=== PATIENT | female | born 1995 | race Caucasian/White ===

== ENCOUNTER 2021-05-12 06:28 | Inpatient (IN) ==
[2021-05-12] MEDS ORDERED: PITOCIN ONE (06:41)
[2021-05-12] MEDS ORDERED: BETADINE SOLN ONE (06:41)
[2021-05-12] MEDS ORDERED: D5 1/2 NS 1,000 ML 1,000 ML IV ONE (06:41)
[2021-05-12] MEDS ORDERED: D5 1/2 NS 1,000 mL + PITOCIN 20 UNITS/L IV 20 UNITS/1,000 ML BAG IV ONE (06:42)
[2021-05-12] MEDS ORDERED: D5 LR + PITOCIN 10 UNITS/L 10 UNITS/1,000 ML BAG IV ONE (06:42)
--- NOTE | 2021-05-12 07:06 | DR.OB ---
OB Quick Note - Assessment/Plan Assessment/Plan: L&D 05/12/21 at 7:00am S-No complaint. O-Afebrile,VSS AAY=547 with good LTV, +accel, no decel. CTX=mild uterine irritability CVX=3-4cm/50%/-1/VTX AROM with clear fluid. IUPC and FSE placed. A-IUP at 38 2/7 weeks for induction A1DM anxiety P-Begin pitocin induction Anticipate
[2021-05-12] MEDS ORDERED: NUBAIN INJ 200 MG VIAL MULTIDOSE IVP PRN (07:11)
[2021-05-12] MEDS ORDERED: REGLAN INJ 10 MG VIAL IVP PRN (07:11)
[2021-05-12] MEDS ORDERED: PITOCIN IVP ONE (07:11)
[2021-05-12] MEDS ORDERED: MORPHINE SULFATE INJ 2 MG INJ IVP PRN (07:11)
[2021-05-12] MEDS ORDERED: D5 1/2 NS 1,000 ML 1,000 ML IV SCH (07:11)
[2021-05-12] MEDS ORDERED: D5 LR + PITOCIN 10 UNITS/L 10 UNITS/1,000 ML BAG IV PRN (07:11)
[2021-05-12] MEDS ORDERED: PHENERGAN INJ 25 MG IM PRN ×2 (07:11→10:46)
[2021-05-12 07:55] LABS: BILIRUBIN,URINE NEGATIVE (NEGATIVE); BLOOD/HEMOGLOBIN,URINE NEGATIVE (NEGATIVE); GLUCOSE, URINE NEGATIVE (NEGATIVE); KETONES,URINE NEGATIVE (NEGATIVE); LEUKOCYTE ESTERASE ,URINE 1+ (NEGATIVE); NITRITES,URINE NEGATIVE (NEGATIVE); PROTEIN,URINE NEGATIVE (NEGATIVE); UROBILINOGEN,URINE NORMAL (NORMAL)
[2021-05-12] MEDS ORDERED: LR 1,000 ML IV 1,000 ML IV ONE (07:59)
[2021-05-12] MEDS ORDERED: FENTANYL VIAL INJ 100 mcg ONE ×2 (07:59→08:00)
[2021-05-12] MEDS ORDERED: NAROPIN EPIDURAL 0.2% 100 ML ONE (08:00)
[2021-05-12 08:04] LABS: APPEARANCE,URINE CLEAR (CLEAR); BACTERIA,URINE TRACE /HPF (NEGATIVE); COLOR,URINE YELLOW (YELLOW); RBC,URINE 0-2 /HPF (0-3); SQUAMOUS EPITHELIAL CELL,UR FEW /HPF (NEGATIVE)
[2021-05-12] MEDS ORDERED: MOTRIN TAB 800 MG PO PRN (10:46)
[2021-05-12] MEDS: D5 1/2 NS 1,000 ML 1,000 ML with PITOCIN 20 UNITS IV SCH ×4 (11:30→20:49)
--- NOTE | 2021-05-12 11:45 | DR.OB ---
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 Head delivered over intact perineum. Nuchal cord x 1 reduced. Nose and mouth bulb suctioned. Body delivered over intact perineum. Cord clamped x 2 and cut. Infant handed to attendant. Cord sent for gases. Placenta delivered spontaneously / intact / 3 vessel cord. No CVX / vaginal / perineal tears. Viable male delivered by , wt=6'14" and 8/9, stable to NBN. Mother stable to RR. GXO=006yc.
[2021-05-12] MEDS ORDERED: MILK OF MAGNESIA PO PRN (12:28)
[2021-05-12] MEDS ORDERED: ADACEL or BOOSTRIX TDaP VACCINE IM ONE (12:28)
[2021-05-12] MEDS ORDERED: AMBIEN PO PRN (12:28)
[2021-05-12] MEDS ORDERED: DERMOPLAST PAIN RELIEF SPRAY TOP PRN (12:28)
[2021-05-13] MEDS: D5 1/2 NS 1,000 ML 1,000 ML with PITOCIN 20 UNITS IV SCH ×4 (05:12→11:28)
[2021-05-13 05:48] LABS: HEMATOCRIT 31.4 % (36.0-47.0); HEMOGLOBIN 10.2 g/dL (12.0-16.0)
[2021-05-13] MEDS ORDERED: DEPO-PROVERA CONTRACEPTIVE INJ IM ONE (07:27)
[2021-05-13] MEDS ORDERED: BETADINE SOLN ONE (08:05)
[2021-05-13] MEDS ORDERED: LEXAPRO ONE (08:34)
[2021-05-13] MEDS ORDERED: LEXAPRO PO SCH (09:00)
[2021-05-13] MEDS ORDERED: CELEXA PO SCH (09:00)
[2021-05-13] MEDS ORDERED: PRENATAL PLUS PO SCH (09:00)
[2021-05-13 12:28] VITALS: BP 123/78
== END 2021-05-13 15:35 | disposition home or self-care (01) | DRG 807 ==
LOC: LD 06:28 → MED/SURG 12:25
PROVIDERS: ADMIT Specialist; ATTEND Specialist
DX: Z01.812 Encounter for preprocedural laboratory examination; Z37.0 Single live birth; Z01.818 Encounter for other preprocedural examination; O13.3 Gestational [pregnancy-induced] hypertension without significant proteinuria, third trimester; Z3A.38 38 weeks gestation of pregnancy; Z20.822 Contact with and (suspected) exposure to COVID-19; O99.343 Other mental disorders complicating pregnancy, third trimester

== ENCOUNTER 2024-01-14 17:17 | Observation (INO) ==
[2024-01-14] MEDS ORDERED: ZOFRAN INJ 4 MG VIAL ONE (17:38)
--- NOTE | 2024-01-14 17:38 | DR.EXTPAIN ---
HPI Time seen Time Seen by Provider: 01/14/24 17:38 PCP Primary Care Physician: NFP Complaint/Symptoms Chief Complaint:: c/o vomiting, dizzy, back & stomach pain since 3am. denies fever, cough, chills Self Treatment fo Chief Complaint: zofran and phenergan PO COVID-19 Coronavirus risk:travel/contact w/high risk person: No Has patient experienced Coronavirus symptoms: No Source History Provided: Patient Mode of arrival Mode of Arrival: Ambulatory Timing Onset of Chief Complaint: 01/14/24 PMH PMH Past Medical History: Yes Past Medical History: Asthma Past Medical History Comment: endometriosis Past Surgical History: Yes Surgical History: [employer] Surgery Past Surgical History Comment: tubal ligation Family History History of Family Medical Conditions: Yes Family Medical History: Diabetes Mellitus, Cancer, [place], Coronary Artery Disease and Hypertension Social History Type of Tobacco Use: Vape Alcohol Use: None Do you use any recreational Drugs:: No Lives With: Alone Lives Where: Home Travel Risk Coronavirus risk:travel/contact w/high risk person: No Has patient experienced Coronavirus symptoms: No Infectious screening Have you traveled outside the country in the last 6 months?: No Isolation: Standard PE Vital Signs Vitals: Vital Signs Temperature 97.4 F Temperature 97.5 F Pulse Rate [Left Brachial] 74 Pulse Rate 50 Respiratory Rate 18 Respiratory Rate 24 Blood Pressure [Left Arm] 126/74 Blood Pressure 135/74 O2 Sat by Pulse Oximetry 97 O2 Sat by Pulse Oximetry 100 ROR Labs Reviewed 01/14/24 17:36 01/14/24 17:36 Laboratory: WBC 11.4 X10^3/uL (3.6-10.0) H 01/14/24 17:36 RBC 4.49 X10^6/uL (3.5-5.4) 01/14/24 17:36 Hgb 12.5 g/dL (12.0-16.0) 01/14/24 17:36 Hct 38.1 % (36.0-47.0) 01/14/24 17:36 MCV 84.8 fL (80.0-100.0) 01/14/24 17:36 MCH 27.9 pg (27.0-34.0) 01/14/24 17:36 MCHC 32.8 g/dL (33.0-35.0) L 01/14/24 17:36 RDW 16.0 % (11.6-16.5) 01/14/24 17:36 Plt Count 268 X10^3/uL (150.0-450.0) 01/14/24 17:36 MPV 8.5 fL (7.4-11.0) 01/14/24 17:36 Neut % (Auto) 68.2 % (42.0-75.0) 01/14/24 17:36 Lymph % (Auto) 25.8 % (21.0-51.0) 01/14/24 17:36 Benson % (Auto) 5.3 % (0.0-13.0) 01/14/24 17:36 Eos % (Auto) 0.2 % (0.9-2.9) L 01/14/24 17:36 Baso % (Auto) 0.5 % (0.2-1.0) 01/14/24 17:36 Neut # (Auto) 7.8 x10^3/uL (2.2-4.8) H 01/14/24 17:36 Lymph # (Auto) 2.9 X10^3/uL (1.3-2.9) 01/14/24 17:36 Benson # (Auto) 0.6 x10^3/uL (0.3-0.8) 01/14/24 17:36 Eos # (Auto) 0.0 x10^3/uL (0.0-0.2) 01/14/24 17:36 Baso # (Auto) 0.1 X10^3/uL (0.0-0.1) 01/14/24 17:36 Absolute Nucleated RBC 0.2 /100WBC 01/14/24 17:36 Sodium 135 mmol/L (136-145) L 01/14/24 17:36 Corrected Sodium TNP 01/14/24 17:36 Potassium 3.8 mmol/L (3.5-5.1) 01/14/24 17:36 Chloride 100 mmol/L (98-107) 01/14/24 17:36 Carbon Dioxide 29.6 mmol/L (21-32) 01/14/24 17:36 BUN 6 mg/dL (7-18) L 01/14/24 17:36 Creatinine 0.95 mg/dL (0.55-1.02) 01/14/24 17:36 Est GFR (MDRD) Af Amer > 60 (>60) 01/14/24 17:36 Est GFR (MDRD) Non-Af > 60 (>60) 01/14/24 17:36 Glucose 102 mg/dL (65-99) H 01/14/24 17:36 Calcium 8.5 mg/dL (8.5-10.1) 01/14/24 17:36 Corrected Calcium TNP 01/14/24 17:36 Total Bilirubin 0.30 mg/dL (0.2-1.0) 01/14/24 17:36 AST 11 Units/L (15-37) L 01/14/24 17:36 ALT 18 Units/L (12-78) 01/14/24 17:36 Alkaline Phosphatase 89 Units/L (46-116) 01/14/24 17:36 Total Protein 7.7 g/dL (6.4-8.2) 01/14/24 17:36 Albumin 3.8 g/dL (3.4-5.0) 01/14/24 17:36 Globulin 3.9 g/dL (2.5-4.5) 01/14/24 17:36 Albumin/Globulin Ratio 1.0 Ratio (1.1-2.1) L 01/14/24 17:36 Amylase 44 Units/L (25-115) 01/14/24 17:36 Lipase 24 Units/L (16-77) 01/14/24 17:36 Specimen Type Clean catch urine 01/14/24 18:35 Urine Color Yellow (YELLOW) 01/14/24 18:35 Urine Appearance Clear (CLEAR) 01/14/24 18:35 Urine pH 6.0 (5.0 - 8.0) 01/14/24 18:35 Ur Specific [place] 1.020 (1.000-1.030) 01/14/24 18:35 Urine Protein Negative (NEGATIVE) 01/14/24 18:35 Urine Glucose (UA) Negative (NEGATIVE) 01/14/24 18:35 Urine Ketones Negative (NEGATIVE) 01/14/24 18:35 Urine Blood Negative (NEGATIVE) 01/14/24 18:35 Urine Nitrite Negative (NEGATIVE) 01/14/24 18:35 Urine Bilirubin Negative (NEGATIVE) 01/14/24 18:35 Urine Urobilinogen Normal (NORMAL) 01/14/24 18:35 Ur Leukocyte Esterase Negative (NEGATIVE) 01/14/24 18:35 SARS-CoV-2 (PCR) Negative (NEGATIVE) 01/14/24 17:32 Influenza Type A (PCR) Negative (NEGATIVE) 01/14/24 17:32 Influenza Type B (PCR) Negative (NEGATIVE) 01/14/24 17:32 RSV (PCR) Negative (NEGATIVE) 01/14/24 17:32 Opioid Opioid Risk Tool Age (Edgard box if 16-45): Yes History of Preadolescent Sexual Abuse: No Total: 1 Total Score Risk Category: Low Risk Copyright: Pierre [employer]YLES predicting aberrant behaviors Discharge Plan Discharge Plan Patient Disposition: 01 HOME, SELF-CARE Condition: Stable Prescriptions: No Action [facility] Concerns: Post Hospitalization: new medications and changes needed to prevent readmission or further decline. Pt educated and given instructions on all concerns. Plan of Treatment: Continue with present treatment and follow up plan. Pt is to keep follow up appointment as instructed and take medications as ordered. Orders to Discharge Patient Discharge Orders: Transfer (Routine); Ordered 01/14/24 Ordered By: MARYAN ELAINE Follow ups/Referrals Follow ups/Referrals: NFD,None [Primary Care Provider] - 3 days Instructions Stand Alone Forms: Post Hospital Follow Up Care
[2024-01-14] MEDS: ZOFRAN INJ 4 MG VIAL IVP ONE (17:45)
[2024-01-14] MEDS: NS 1,000 ML IV 1,000 ML IV ONE (17:45)
[2024-01-14 17:52] LABS: BASOPHILS # (AUTO) 0.1 X10^3/uL (0.0-0.1); EOSINOPHILS % (AUTO) 0.2 % (0.9-2.9); HEMOGLOBIN 12.5 g/dL (12.0-16.0); LYMPHOCYTES # (AUTO) 2.9 X10^3/uL (1.3-2.9); MONOCYTES # (AUTO) 0.6 x10^3/uL (0.3-0.8)
[2024-01-14] MEDS: PEPCID 20 MG VIAL 20 MG in NS 50 ML IV 50 ML IV ONE (17:52)
[2024-01-14 17:55] LABS: BASOPHILS % (AUTO) 0.5 % (0.2-1.0); HEMATOCRIT 38.1 % (36.0-47.0); LYMPHOCYTES % (AUTO) 25.8 % (21.0-51.0); MEAN CORPUSCULAR HEMOGLOBIN 27.9 pg (27.0-34.0); MEAN CORPUSCULAR HGB CONC 32.8 g/dL (33.0-35.0); MEAN CORPUSCULAR VOLUME 84.8 fL (80.0-100.0); MEAN PLATELET VOLUME 8.5 fL (7.4-11.0); MONOCYTES % (AUTO) 5.3 % (0.0-13.0); NEUTROPHILS # (AUTO) 7.8 x10^3/uL (2.2-4.8); NEUTROPHILS % (AUTO) 68.2 % (42.0-75.0); PLATELET COUNT 268 X10^3/uL (150.0-450.0); RED BLOOD COUNT 4.49 X10^6/uL (3.5-5.4); WHITE BLOOD COUNT 11.4 X10^3/uL (3.6-10.0)
[2024-01-14 18:01] LABS: ALANINE AMINOTRANSFERASE 18 Units/L (12-78); ALBUMIN 3.8 g/dL (3.4-5.0); ALKALINE PHOSPHATASE 89 Units/L (46-116); AMYLASE 44 Units/L (25-115); ASPARTATE AMINO TRANSFERASE 11 Units/L (15-37); BLOOD UREA NITROGEN 6 mg/dL (7-18); CALCIUM 8.5 mg/dL (8.5-10.1); CARBON DIOXIDE 29.6 mmol/L (21-32); CHLORIDE 100 mmol/L (98-107); CREATININE 0.95 mg/dL (0.55-1.02); GLUCOSE 102 mg/dL (65-99); LIPASE 24 Units/L (16-77); POTASSIUM 3.8 mmol/L (3.5-5.1); SODIUM 135 mmol/L (136-145); TOTAL PROTEIN 7.7 g/dL (6.4-8.2); eGFR NON BLACK RACES > 60 (>60)
[2024-01-14 18:55] LABS: APPEARANCE,URINE CLEAR (CLEAR); BILIRUBIN,URINE NEGATIVE (NEGATIVE); BLOOD/HEMOGLOBIN,URINE NEGATIVE (NEGATIVE); COLOR,URINE YELLOW (YELLOW); GLUCOSE, URINE NEGATIVE (NEGATIVE); KETONES,URINE NEGATIVE (NEGATIVE); LEUKOCYTE ESTERASE ,URINE NEGATIVE (NEGATIVE); NITRITES,URINE NEGATIVE (NEGATIVE); PROTEIN,URINE NEGATIVE (NEGATIVE); UROBILINOGEN,URINE NORMAL (NORMAL)
--- NOTE | 2024-01-14 20:13 | CT ---
EXAM: CT ABDOMEN AND PELVIS WITHOUT INTRAVENOUS CONTRASTHISTORY: Pain. Vomiting. Dizziness.TECHNIQUE: Spiral axial CT images are obtained through the abdomen and pelvis without the administration of intravenous contrast. Additional coronal and sagittal reformatted images are reconstructed.DOSIMETRY: Total DLP 212.25 mGycm; CTDI 4.18 mGyCOMPARISON: None available.FINDINGS:BILIARY SYSTEM: There is cholelithiasis, consistent with sequela of chronic cholecystitis. Dilated and mildly thickened appearance of the gallbladder (without discernible pericholecystic edema) which may represent acute cholecystitis in the appropriate clinical setting. Axial image 22-38; coronal image 14-30; sagittal image 38-48. Consider follow-up evaluation with HIDA scan to rule out cystic duct obstruction and acute cholecystitis as clinically warranted.GASTROINTESTINAL TRACT: There is no evidence for bowel herniation, bowel obstruction, colitis or diverticulitis. A normal-appearing appendix is seen. Abundant fecal material is seen within the large bowel loops; nonspecific finding; rule out constipation.GENITOURINARY SYSTEM: The kidneys are unremarkable. There is no ureteral calculus or stigmata of obstructive uropathy. The urinary bladder is grossly unremarkable for a non-dedicated exam.REPRODUCTIVE SYSTEM: The uterus and adnexa appear grossly unremarkable for a CT scan. Consider follow-up dedicated imaging as clinically warranted.CT ABDOMEN: The liver, spleen, pancreas, adrenal glands, aorta, and inferior vena cava are within normal limits for a noncontrast CT scan. There is no intra-abdominal or retroperitoneal lymphadenopathy, free fluid, or free air seen. No abdominal herniation is noted.CT PELVIS: No pelvic sidewall or inguinal lymphadenopathy is seen. No inguinal herniation is noted. No free fluid or free air is seen.BONES AND JOINTS: The visualized bony structures are within normal limits.LUNG BASES: The lung bases are clear.IMPRESSION:1. Cholelithiasis, consistent with sequela of chronic cholecystitis.2. Dilated and mildly thickened appearance of the gallbladder (without discernible pericholecystic edema) which may represent acute cholecystitis in the appropriate clinical setting. Axial image 22-38; coronal image 14-30; sagittal image 38-48.3. Consider follow-up evaluation with HIDA scan to confirm cystic duct obstruction and acute cholecystitis as clinically warranted.4. No evidence for ureteral stones or obstructive uropathy.5. No evidence for acute appendicitis, bowel herniation/obstruction, colitis or diverticulitis seen.6. Abundant fecal material is seen within the large bowel loops; nonspecific finding; rule out constipation.7. No free fluid, free air, mass lesions, or lymphadenopathy seen.THIS IS AN ELECTRONICALLY VERIFIED FINAL [id number]/14/2024 8:10 PM - Electronically signed by Nancy Nelson MD
[2024-01-14] MEDS: LEVAQUIN PREMIX IV 750 MG 750 MG/150 ML BAG IV SCH ×2 (20:58→23:49)
[2024-01-14] MEDS ORDERED: MORPHINE SULFATE INJ 2 MG INJ IVP PRN (23:09)
[2024-01-14] MEDS ORDERED: ZOFRAN INJ 4 MG VIAL IVP PRN (23:09)
[2024-01-14 23:38] VITALS: BMI 29.2
[2024-01-14] MEDS: NS 1,000 ML IV 1,000 ML IV SCH (23:49)
[2024-01-15 06:47] LABS: BASOPHILS % (AUTO) 0.4 % (0.2-1.0); EOSINOPHILS % (AUTO) 0.3 % (0.9-2.9); HEMATOCRIT 33.3 % (36.0-47.0); HEMOGLOBIN 11.1 g/dL (12.0-16.0); LYMPHOCYTES # (AUTO) 3.8 X10^3/uL (1.3-2.9); LYMPHOCYTES % (AUTO) 39.4 % (21.0-51.0); MEAN CORPUSCULAR HEMOGLOBIN 28.3 pg (27.0-34.0); MEAN CORPUSCULAR HGB CONC 33.3 g/dL (33.0-35.0); MEAN CORPUSCULAR VOLUME 84.8 fL (80.0-100.0); MEAN PLATELET VOLUME 8.9 fL (7.4-11.0); MONOCYTES # (AUTO) 0.7 x10^3/uL (0.3-0.8); MONOCYTES % (AUTO) 6.9 % (0.0-13.0); PLATELET COUNT 213 X10^3/uL (150.0-450.0); RED BLOOD COUNT 3.93 X10^6/uL (3.5-5.4); RED CELL DISTRIBUTION WIDTH 15.7 % (11.6-16.5); WHITE BLOOD COUNT 9.5 X10^3/uL (3.6-10.0)
[2024-01-15 06:51] LABS: BILIRUBIN,URINE NEGATIVE (NEGATIVE); BLOOD/HEMOGLOBIN,URINE NEGATIVE (NEGATIVE); GLUCOSE, URINE NEGATIVE (NEGATIVE); KETONES,URINE NEGATIVE (NEGATIVE); LEUKOCYTE ESTERASE ,URINE NEGATIVE (NEGATIVE); NITRITES,URINE NEGATIVE (NEGATIVE); PROTEIN,URINE NEGATIVE (NEGATIVE); UROBILINOGEN,URINE NORMAL (NORMAL)
[2024-01-15 06:57] LABS: ALANINE AMINOTRANSFERASE 12 Units/L (12-78); ALKALINE PHOSPHATASE 72 Units/L (46-116); AMYLASE 35 Units/L (25-115); ASPARTATE AMINO TRANSFERASE 10 Units/L (15-37); BLOOD UREA NITROGEN 4 mg/dL (7-18); CALCIUM 8.2 mg/dL (8.5-10.1); CARBON DIOXIDE 24.6 mmol/L (21-32); CHLORIDE 105 mmol/L (98-107); GLUCOSE 83 mg/dL (65-99); LIPASE 19 Units/L (16-77); POTASSIUM 3.7 mmol/L (3.5-5.1); SODIUM 138 mmol/L (136-145); TOTAL PROTEIN 6.2 g/dL (6.4-8.2); eGFR NON BLACK RACES > 60 (>60)
[2024-01-15 07:03] LABS: APPEARANCE,URINE CLEAR (CLEAR); COLOR,URINE STRAW (YELLOW)
--- NOTE | 2024-01-15 07:57 | RAD ---
EXAM:CHEST, 1 VIEWHISTORY:[id number] ORDER;COMPARISON:Prior study or studies were utilized for comparison during interpretation with the most relevant dated 10/06/2019TECHNIQUE:CHEST, 1 VIEWFINDINGS:Chest:Lines and tubes: NoneMediastinum: Cardiac and mediastinal shadow is within normal limits for size and contour.Pulmonary vessels: No pulmonary vascular congestion.Lung becker: No suspicious airspace opacity.Pleura: No effusion. No pneumothorax.Bones and soft tissues: No acute osseous or soft tissue abnormality.IMPRESSION:1. No acute cardiopulmonary abnormalityTHIS IS AN ELECTRONICALLY VERIFIED FINAL [id number]/15/2024 7:53 AM - Electronically signed by Shine Tejada MD
--- NOTE | 2024-01-15 08:29 | EKG ---
Test Reason : pre op Blood Pressure : */* mmHG Vent. Rate : 60 BPM Atrial Rate : 60 BPM P-R Int : 124 ms QRS Dur : 86 ms QT Int : 424 ms P-R-T Axes : 38 54 35 degrees QTc Int : 424 ms Normal sinus rhythm with sinus arrhythmia Normal ECG No previous ECGs available Confirmed by Mason Foster MD ([id number]) on 01/15/2024 9:44:19 AM Referred By: Confirmed By: Mason Foster MD
[2024-01-15] MEDS: NOZIN NASAL SANITIZER TP SCH (09:12)
[2024-01-15] MEDS: NS + KCL 20 MEQ/L 1,000 ML with MAGNESIUM SULFATE 50% INJ VIAL 1 G IV SCH (09:14)
[2024-01-15] MEDS: LR 1,000 ML IV 1,000 ML IV ONE (12:15)
[2024-01-15] MEDS: ANCEF VIAL 1 GRAM ONE (12:21)
[2024-01-15] MEDS: NS 100 ML IV 100 ML ONE (12:21)
[2024-01-15] MEDS: REGLAN INJ 10 MG VIAL ONE (12:34)
[2024-01-15] MEDS: TORADOL 30 MG VIAL ONE (12:34)
[2024-01-15] MEDS: ULTANE GAS IN ONE (12:34)
[2024-01-15] MEDS: DIPRIVAN VIAL 20 ML ONE (12:34)
[2024-01-15] MEDS ORDERED: SUPRANE ONE (12:34)
[2024-01-15] MEDS: ZOFRAN INJ 4 MG VIAL ONE ×2 (12:34→14:05)
[2024-01-15] MEDS: VERSED ONE (12:34)
[2024-01-15] MEDS: BRIDION ONE (12:34)
[2024-01-15] MEDS: PEPCID 20 MG VIAL ONE (12:34)
[2024-01-15] MEDS: OFIRMEV IV 1000 MG VIAL 1,000 MG/100 ML VIAL IV ONE (12:34)
[2024-01-15] MEDS: FENTANYL VIAL INJ 100 mcg ONE (12:34)
[2024-01-15] MEDS: ZEMURON 50 MG VIAL ONE (12:34)
[2024-01-15] MEDS ORDERED: DILAUDID INJ IVP PRN (13:05)
[2024-01-15] MEDS ORDERED: BARHEMSYS INJ IVP PRN (13:05)
[2024-01-15] MEDS ORDERED: REGLAN INJ 10 MG VIAL IVP PRN (13:05)
[2024-01-15] MEDS ORDERED: BENADRYL INJ 50 MG VIAL IVP PRN (13:05)
[2024-01-15] MEDS: SUPRANE ONE (13:18)
[2024-01-15] MEDS: ZOFRAN INJ 4 MG VIAL IVP PRN (14:00)
[2024-01-15] MEDS: DILAUDID INJ IVP PRN (14:09)
[2024-01-15] MEDS: DILAUDID INJ ONE (14:12)
[2024-01-15] MEDS: NS 1,000 ML IV 1,000 ML ONE (21:53)
[2024-01-15] MEDS: CONSULT PHARMACY - POTASSIUM & MAGNESIUM XX SCH (21:53)
[2024-01-16 05:02] VITALS: O2SAT 98
[2024-01-16 06:04] LABS: BASOPHILS % (AUTO) 0.3 % (0.2-1.0); EOSINOPHILS % (AUTO) 0.1 % (0.9-2.9); HEMATOCRIT 38.3 % (36.0-47.0); HEMOGLOBIN 12.6 g/dL (12.0-16.0); LYMPHOCYTES # (AUTO) 2.5 X10^3/uL (1.3-2.9); LYMPHOCYTES % (AUTO) 23.9 % (21.0-51.0); MEAN CORPUSCULAR HGB CONC 32.9 g/dL (33.0-35.0); MEAN PLATELET VOLUME 8.8 fL (7.4-11.0); MONOCYTES # (AUTO) 0.8 x10^3/uL (0.3-0.8); MONOCYTES % (AUTO) 7.5 % (0.0-13.0); NEUTROPHILS # (AUTO) 7.3 x10^3/uL (2.2-4.8); NEUTROPHILS % (AUTO) 68.2 % (42.0-75.0); PLATELET COUNT 252 X10^3/uL (150.0-450.0); RED BLOOD COUNT 4.51 X10^6/uL (3.5-5.4); WHITE BLOOD COUNT 10.7 X10^3/uL (3.6-10.0)
[2024-01-16 06:18] LABS: ALANINE AMINOTRANSFERASE 31 Units/L (12-78); ALBUMIN 3.5 g/dL (3.4-5.0); ALKALINE PHOSPHATASE 88 Units/L (46-116); ASPARTATE AMINO TRANSFERASE 25 Units/L (15-37); BLOOD UREA NITROGEN 2 mg/dL (7-18); CALCIUM 7.9 mg/dL (8.5-10.1); CHLORIDE 102 mmol/L (98-107); CREATININE 0.75 mg/dL (0.55-1.02); GLUCOSE 77 mg/dL (65-99); MAGNESIUM 2.2 mg/dL (2.0-2.9); POTASSIUM 3.6 mmol/L (3.5-5.1); SODIUM 136 mmol/L (136-145); TOTAL PROTEIN 7.4 g/dL (6.4-8.2); eGFR NON BLACK RACES > 60 (>60)
[2024-01-16 08:31] VITALS: BP 123/71; PULSE 65; RESP 18; TEMP 98.2
== END 2024-01-16 09:10 | disposition home or self-care (01) ==
LOC: ER 17:17 → MED/SURG 17:17
PROVIDERS: ADMIT Surgery; ATTEND Surgery